=== PATIENT | male | born 1990 | race Caucasian/White ===

== ENCOUNTER 2022-03-17 08:41 | Emergency (ER) | payer OTHER ==
[~2022-03-17] VITALS: Ht 182.8 cm; Wt 111.1 kg
[2022-03-17 09:29] LABS: BASO % 0.2 % (0.0-1.0); EOS # 0.2 10*3/uL (0.0-0.4); EOS % 1.6 % (1.0-4.0); HEMATOCRIT 50.3 % (42.0-52.0); LYMPH # 1.5 10*3/uL (1.3-4.4); LYMPH % 14.9 % (27.0-41.0); MEAN CELL VOLUME 91.8 fl (80.0-94.0); MEAN CORPUSCULAR HGB CONC 33.8 g/dl (33.0-37.0); MEAN PLATELET VOLUME 11.2 fl (9.6-12.3); MONO # 0.8 10*3/uL (0.1-1.0); MONO % 7.3 % (3.0-9.0); NEUT # 7.8 10*3/uL (2.3-7.9); NEUT % 75.4 % (47.0-73.0); PLATELET COUNT AUTOMATED 225 10*3/uL (130-400); RED BLOOD COUNT 5.48 10*6/uL (4.50-5.90); WHITE BLOOD COUNT 10.3 10*3/uL (4.8-10.8)
[2022-03-17 10:06] LABS: ALKALINE PHOSPHATASE 75 U/L (46-116); BUN 11 mg/dl (9-23); CHLORIDE 104 mmol/L (98-107); LIPASE 116 U/L (12-53); POTASSIUM 4.2 mmol/L (3.4-5.1); SGPT/ALT 31 U/L (10-49); TOTAL PROTEIN 7.2 gm/dL (6.0-8.0)
[2022-03-17] MEDS ORDERED: ONDANSETRON4 MG SL (10:28)
[2022-03-17] MEDS ORDERED: METRONIDAZOLE500 M1 PO (10:28)
[2022-03-17] MEDS ORDERED: CIPRO500 MG PO (10:28)
== END 2022-03-17 10:40 | disposition home or self-care (01) ==
LOC: ED 08:41
PROVIDERS: Internal Medicine
DX: K52.9 Noninfective gastroenteritis and colitis, unspecified (principal); Z90.49 Acquired absence of other specified parts of digestive tract